=== PATIENT | male | born 1990 | race Caucasian/White ===

== ENCOUNTER 2018-05-23 02:56 | Emergency (ER) | payer OTHER ==
[~2018-05-23] VITALS: Ht 180.3 cm; Wt 82.0 kg
[2018-05-23 03:02] VITALS: BP 144/102; PULSE 95; RESP 18; Ht 180.3 cm; Wt 82.0 kg
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
== END 2018-05-23 04:05 | disposition home or self-care (01) ==
LOC: E/R 02:56
DX: M79.661 Pain in right lower leg (principal)
CPT/HCPCS: 73590